=== PATIENT | female | born 1970 | race Caucasian/White ===

== ENCOUNTER → 2016-07-07 | Outpatient (CLI) | payer BC ==
--- NOTE | 2016-07-08 09:03 | WWHP ---
DATE OF SERVICE: 07/07/2016 CHIEF COMPLAINT: The patient is here for her routine gynecologic exam and mammogram. HPI: This is a 46-year-old, G2, P2 with an LMP of 06/12/2016. The patient states her periods have gotten slightly irregular about every 4 to 6 weeks. She is without gynecologic complaints. Her last Pap smear on 01/07/2015 showed ASCUS and there was a negative high-risk HPV testing. Past medical history is unremarkable. MEDICATIONS: None. ALLERGIES: No known drug allergies. Past surgical history is unchanged from the 2015 H&P. 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 SOCIAL HISTORY: She denies tobacco and drug use and has about 2 alcoholic drinks per month. 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 Family history is unchanged from the 2015 H&P. REVIEW OF SYSTEMS: Weight has been stable. She denies respiratory, cardiac, or GI problems. PHYSICAL EXAM: Blood pressure 103/66. Height 5 feet 2 inches. Weight 121 pounds. Temperature 97.7, pulse 73. This is a well-developed, well-nourished white female who is alert and oriented x3, in no acute distress. HEENT is within normal limits. NECK: Supple without mass or thyromegaly. CHEST AND LUNGS: Clear to auscultation. HEART: Regular rate and rhythm. Breasts are without mass or discharge. Axillary exam is negative for adenopathy. BACK: Negative for CVA tenderness. ABDOMEN: Soft, nontender, without palpable masses. PELVIC EXAM: Normal external genitalia. Cervix and vagina appear normal. The uterus is retroverted, nongravid size and nontender. There are no palpable adnexal masses or tenderness. Rectal exam is negative for mass or tenderness and is negative for occult blood. EXTREMITIES: Nontender. IMPRESSION: 1. A 46-year-old female with normal gynecologic exam. 2. History of ASCUS Pap smear with negative high-risk HPV in 2014. PLAN: 1. Pap smear was performed. 2. Self breast examination was discussed. 3. Mammogram will be done today. 4. The patient will keep a menstrual calendar and call if she is having menstrual problems. 5. She will return in one year.
--- NOTE | 2016-07-08 11:44 | MM ---
Reason for exam: screening (asymptomatic). Last mammogram was performed 1 year and 7 months ago. Physical Findings: A clinical breast exam by your physician is recommended on an annual basis and results should be correlated with mammographic findings. MG Screening Mammo w CAD Bilateral CC and MLO view(s) were taken. Prior study comparison: December 06, 2014, bilateral MG screening mammo w CAD. May 20, 2011, bilateral digital screening mammo w/CAD. The breast tissue is heterogeneously dense. This may lower the sensitivity of mammography. No significant changes when compared with prior studies. ASSESSMENT: Benign, BI-RAD 2 RECOMMENDATION: Routine screening mammogram of both breasts in 1 year.
== END | disposition home or self-care (01) ==
LOC: WWCWWP 15:05
PROVIDERS: ATTEND Obstetrics & Gynecology
DX: Z12.31 Encounter for screening mammogram for malignant neoplasm of breast (principal)

== ENCOUNTER → 2018-06-21 | Outpatient (CLI) | payer OTHER ==
[2018-06-21 16:21] VITALS: BP 113/66; PULSE 70; RESP 18; TEMP 97.1; BMI 23.3
--- NOTE | 2018-06-21 16:57 | P.HPOB ---
History of Present Illness H&P Date: 06/21/18 Chief Complaint: The patient is here for her routine gynecologic exam and mammogram. This is a 48-year-old with an LMP of 06/04/2018. The patient states her menses are regular every month and she denies hot flashes. She has used condoms for control. She is without gynecologic complaints. Her last to Pap smear tests showed ascus and both were negative for high-risk HPV. These Pap smears were done on 01/07/2015 and 07/07/2016. Review of Systems The patient has gained 6 pounds over the last year. She denies respiratory, cardiac, or G.I. problems. 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 - Past Family History Father Family Medical History: COPD, Hyperlipidemia Mother Additional Family Medical History / Comment(s): Abnormal heart valve. Grandfather had colon cancer and grandmother has diabetes and a pacemaker. Medications and Allergies Home Medications Medication Instructions Recorded Confirmed Type No Known Home Medications 06/21/18 06/21/18 History Allergies Allergy/AdvReac Type Severity Reaction Status Date / Time No Known Allergies Allergy Verified 06/21/18 16:21 Exam Vital Signs Temp Pulse Resp BP Pulse Ox 06/21/18 16:16 97.1 F L 70 18 113/66 99 Intake and Output 06/21/18 06/21/18 06/21/18 06:59 14:59 22:59 Other: Weight 58.06 kg Height 5'2", weight 127 pounds, BMI 23.4. This is a well-developed well-nourished white female who is alert and oriented times 3 in no acute distress. HEENT: Within normal limits. NECK: Supple without mass or thyromegaly. CHEST AND LUNGS: Clear to auscultation. HEART: Regular rate and rhythm. BREASTS: Are without mass or discharge. AXILLARY EXAM: Negative for adenopathy. BACK: Negative for CVA tenderness. ABDOMEN: Soft, nontender, without palpable masses. PELVIC EXAM: Normal external genitalia. Cervix and vagina appear normal. There is no unusual discharge. There is no evidence of prolapse. The uterus is midposition, nongravid size and nontender. There are no palpable adnexal masses or tenderness. RECTAL EXAM: negative for mass or tenderness and is negative for occult blood. EXTREMITIES: Nontender. IMPRESSION: 1. 48 year old gynecologically healthy female with normal gynecologic exam. 2. Previous ascus Pap smear with negative high-risk HPV approximately 2 years ago. PLAN: 1. Pap smear with high-risk HPV testing (cotest) was performed. 2. Self breast awareness was discussed with the patient. 3. Screening mammogram will be done today. 4. Osteoporosis prevention was discussed. I have stressed the importance of adequate calcium, vitamin D and regular exercise. Recommended amounts of calcium and vitamin D were also discussed. 5. She will return in one year.
--- NOTE | 2018-06-28 15:01 | MM ---
Reason for exam: screening (asymptomatic). Last mammogram was performed 1 year and 11 months ago. MG Screening Mammo w CAD Bilateral CC and MLO view(s) were taken. Prior study comparison: July 07, 2016, bilateral MG screening mammo w CAD. December 06, 2014, bilateral MG screening mammo w CAD. The breast tissue is extremely dense which could obscure a lesion on mammography. There are benign-appearing scattered bilateral calcifications. No suspicious abnormality. No significant changes when compared with prior studies. ASSESSMENT: Benign, BI-RAD 2 RECOMMENDATION: Routine screening mammogram of both breasts in 1 year.
== END | disposition home or self-care (01) ==
LOC: WWCWWP 16:01
PROVIDERS: ATTEND Obstetrics & Gynecology
DX: Z12.31 Encounter for screening mammogram for malignant neoplasm of breast (principal)
CPT/HCPCS: 77067

== ENCOUNTER → 2021-09-02 | Outpatient (CLI) | payer OTHER ==
[2021-09-02 16:21] VITALS: BP 106/67; PULSE 68; RESP 17; TEMP 97.4
--- NOTE | 2021-09-02 17:18 | P.HPOB ---
History of Present Illness H&P Date: 09/02/21 Chief Complaint: The patient is here for her routine gynecologic exam and ma mmogram. This is a 51-year-old with an LMP of February 2021. The patient states her menstrual periods were fairly regular up until last February. She denies any significant hot flashes. She uses condoms for control. She recently took a test which was negative. Review of Systems The patient's weight has been stable over the last year. She denies respiratory or cardiac problems. GI: Occasional constipation. 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 History of Any Multi-Drug Resistant Organisms: None Reported Past Surgical History: Section, Orthopedic Surgery Past Psychological History: No Psychological Hx Reported Smoking Status: Never smoker Past Alcohol Use History: Occasional (About 5 per month) Past Drug Use History: None Reported Additional History: She has been since 1992. 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 - Past Family History Father Family Medical History: COPD, Hyperlipidemia Mother Additional Family Medical History / Comment(s): Abnormal heart valve. Grandfather had colon cancer and grandmother has diabetes and a pacemaker. Medications and Allergies Home Medications Medication Instructions Recorded Confirmed Type No Known Home Medications 06/21/18 09/02/21 History Allergies Allergy/AdvReac Type Severity Reaction Status Date / Time No Known Allergies Allergy Verified 09/02/21 16:09 Exam Vital Signs Temp Pulse Resp BP Pulse Ox 09/02/21 16:10 97.4 F L 68 17 106/67 98 Intake and Output 09/02/21 09/02/21 09/02/21 06:59 14:59 22:59 Other: Weight 56.699 kg Height 5 feet 2 inches, weight 125 pounds, BMI 22.9. This is a well-developed well-nourished white female who is alert and oriented times 3 in no acute distress. HEENT: Within normal limits. NECK: Supple without mass or thyromegaly. CHEST AND LUNGS: Clear to auscultation. HEART: Regular rate and rhythm. BREASTS: Are without mass or discharge. AXILLARY EXAM: Negative for adenopathy. BACK: Negative for CVA tenderness. ABDOMEN: Soft, nontender, without palpable masses. PELVIC EXAM: Normal external genitalia. Cervix and vagina appear normal. There is no unusual discharge. There is no evidence of prolapse. The uterus is retroverted, nongravid size and nontender. There are no palpable adnexal masses or tenderness. RECTAL EXAM: Rectovaginal exam is negative for mass or tenderness and is negative for occult blood. EXTREMITIES: Nontender. IMPRESSION: 1. 51-year-old perimenopausal female with recent amenorrhea without significant vasomotor symptoms 2. Normal gynecologic exam. 3. Previous multiple ASCUS Pap smears with negative high-risk HPV testing. Her most recent one was in 2019. PLAN: 1. Pap smear cotest was performed. 2. Self breast awareness was discussed with the patient. We have also discussed symptoms associated with inflammatory breast cancer. 3. Screening mammogram will be done today. 4. Osteoporosis prevention was discussed. I have stressed the importance of adequate calcium, vitamin D and regular exercise. Recommended amounts of calcium and vitamin D were also discussed. 5. She has completed her Covid vaccination series, but did not receive a booster. She understands the CDC recommends a booster if it is been more than 6 months after her last vaccination. She will consider this. 6. She will keep a menstrual calendar and call if menstrual problems. 7. She was advised to return in one year for her annual well woman exam.
--- NOTE | 2021-09-04 11:50 | MM ---
Reason for exam: screening (asymptomatic). Last mammogram was performed 3 years and 2 months ago. Physical Findings: A clinical breast exam by your physician is recommended on an annual basis and results should be correlated with mammographic findings. MG 3D Screening Mammo W/Cad Bilateral CC and MLO view(s) were taken. Prior study comparison: June 21, 2018, bilateral MG screening mammo w CAD. July 07, 2016, bilateral MG screening mammo w CAD. The breast tissue is extremely dense which could obscure a lesion on mammography. Finding: There are fine, grouped/clustered calcifications in the outer quadrant, middle position of the right breast, 6cm from the nipple. New finding since June 21, 2018 and July 07, 2016. ASSESSMENT: Incomplete: need additional imaging evaluation, BI-RAD 0 RECOMMENDATION: Special view mammogram of the right breast. [facility] will attempt to contact patient to return for supplemental views.
== END | disposition home or self-care (01) ==
LOC: WWCWWP 16:00
PROVIDERS: ATTEND Obstetrics & Gynecology
DX: Z12.31 Encounter for screening mammogram for malignant neoplasm of breast (principal)
CPT/HCPCS: 77063; 77067

== ENCOUNTER → 2021-09-09 | Outpatient (CLI) | payer OTHER ==
--- NOTE | 2021-09-10 15:06 | MM ---
Reason for exam: additional evaluation requested from abnormal screening. Last mammogram was performed less than 1 month ago. Physical Findings: A clinical breast exam by your physician is recommended on an annual basis and results should be correlated with mammographic findings. MG 3D Work Up W/Cad RT CC with magnification, LM with magnification, and LM view(s) were taken of the right breast. Prior study comparison: September 02, 2021, bilateral MG 3d screening mammo w/cad. June 21, 2018, bilateral MG screening mammo w CAD. The breast tissue is heterogeneously dense. This may lower the sensitivity of mammography. Finding: There are 5-7 fine, grouped/clustered calcifications in the upper outer quadrant, middle position of the right breast. New finding since September 02, 2021 and June 21, 2018. ASSESSMENT: Suspicious, BI-RAD 4 RECOMMENDATION: Surgical consultation and ultrasound core biopsy of the right breast. (right breast calcifications) Called Dr. Abel's office with mammographic findings and has scheduled an appointment for the patient for 09/25/21 at 10:[address] Hernandez. Biopsy scheduled for 09/26/21 at 8:00. PRELIMINARY REPORT CALLED AND FAXED TO DR. HERNANDEZ ON 09/10/21.
== END | disposition home or self-care (01) ==
LOC: RADMAMWWP 14:52
PROVIDERS: ATTEND Obstetrics & Gynecology
DX: R92.8 Other abnormal and inconclusive findings on diagnostic imaging of breast (principal)
CPT/HCPCS: 77061; 77065

== ENCOUNTER → 2021-09-25 | Outpatient (CLI) | payer OTHER ==
[2021-09-25 10:16] VITALS: BP 131/81; PULSE 61; RESP 17; TEMP 97.5
--- NOTE | 2021-09-25 11:07 | P.GSHP ---
History of Present Illness H&P Date: 09/25/21 Chief Complaint: abnormal right breast mammogram Cammy is a 51 year old white female seen in consultation for DR. Abel regarding a mammographic abnormality in her right breast. She had a bilateral mammogram on 09-02-21 which led to a right breast diagnostic mammogram on 09-09-21. She was noted to have calcifications in the UOQ for which a core biopsy was recommended. She does not feel any new lumps masses or nodules of concern in either breast. It is not complaining of any nipple discharge, skin changes, or pain in either breast. She has never had any surgery on either breast in the past. She is having intermittent periods, she had a period last week this was the first one in 5 months. Right before her menstrual cycle her breasts are tender. In the remote past the patient had an injury to the right chest wall/was kicked by her horse and suffered fracture of several ribs. Caffeine:1 cup/day nicotine: none hormones: none BCP: about 3 years in her 20's chocolate: weekly Family history: maternal grandfather: colon cancer paternal grandmother: ? breast cancer/ dense breast Hormonal History: menarche: 13 , breast fed: yes, age at first : 23 menopause: eva-menopausal hormones: none Surgical History: knee surgery right arthoscopic cyst removed from behind ear Medical History: none Social History: nicotine: none alcohol: occasional drugs: none - Constitutional Constitutional: Denies chills, Denies fever - EENT Eyes: denies blurred vision, denies pain Ears: deny: decreased hearing, tinnitus Ears, nose, mouth and throat: Denies headache, Denies sore throat - Breasts Breasts: bilateral: as per HPI - Cardiovascular Cardiovascular: Denies chest pain, Denies shortness of breath - Respiratory Respiratory: Denies cough, Denies 7 - Gastrointestinal Gastrointestinal: Denies abdominal pain, Denies diarrhea, Denies nausea, Denies vomiting - Genitourinary (Female) Genitourinary: Denies dysuria, Denies hematuria - Menstruation Menstruation: Reports cycle variable - Musculoskeletal Musculoskeletal: Denies myalgias - Integumentary Integumentary: Denies pruritus, Denies rash - Neurological Neurological: Denies numbness, Denies weakness - Psychiatric Psychiatric: Denies anxiety, Denies depression - Endocrine Endocrine: Denies fatigue, Denies weight change - Hematologic/Lymphatic Comment: none - Allergic/Immunologic Allergic/Immunologic: Reports as per HPI Past Medical History Past Medical History: No Reported History Additional Past Medical History / 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 History of Any Multi-Drug Resistant Organisms: None Reported Past Surgical History: Section, Orthopedic Surgery Past Anesthesia/Blood Transfusion Reactions: No Reported Reaction Past Psychological History: No Psychological Hx Reported Smoking Status: Never smoker Past Alcohol Use History: Occasional Past Drug Use History: None Reported - Past Family History Father Family Medical History: COPD, Hyperlipidemia Mother Additional Family Medical History / Comment(s): Abnormal heart valve. Grandfather had colon cancer and grandmother has diabetes and a pacemaker. Medications and Allergies Home Medications Medication Instructions Recorded Confirmed Type No Known Home Medications 06/21/18 09/25/21 History Allergies Allergy/AdvReac Type Severity Reaction Status Date / Time No Known Allergies Allergy Verified 09/25/21 10:13 Surgical - Exam Vital Signs Temp Pulse Resp BP Pulse Ox 97.5 F L 61 17 131/81 99 09/25/21 10:13 09/25/21 10:13 09/25/21 10:13 09/25/21 10:13 09/25/21 10:13 BMI 21.9 - General well developed, well nourished - Eyes normal ocular movement - Neck trachea midline - Respiratory normal respiratory effort - Cardiovascular Rhythm: regular Heart Sounds: normal: S1, S2 - Abdomen Abdomen: soft, non tender, no guarding, no rigid, no rebound - Integumentary normal turgor - Neurologic no disoriented, no combative - Musculoskeletal normal gait - Psychiatric oriented to time, oriented to person, oriented to place, speech is normal, memory intact Breast Exam: BRA: 34C inspection: Bilateral grade 2 ptosis Palpation: Right breast: Multiple positional exam fibrocystic changes no dominant masses or notches of concern Right axilla: Shoddy adenopathy Left breast: Multiple positional exam fibrocystic changes no dominant masses or nodules of concern Left axilla: Shoddy adenopathy Results Mammogram reviewed in detail with Dr. Gilmore from radiology Assessment and Plan Assessment: Impression: Fibrocystic breast changes Microcalcifications of concern right breast mammogram Plan: Stereotactic core biopsy right breast Risk and benefits of the procedure discussed with the patient. Risks include but are not limited to bleeding, infection, reaction to the anesthetic. If the area of concern is not well seen the procedure may be aborted stereotactically. Alternatives such as watchful waiting or removal in the operating room are discussed but not recommended. The patient understands and wishes to proceed CC: Dr. Abel
== END | disposition home or self-care (01) ==
LOC: WWCWWP 09:59
PROVIDERS: ATTEND Surgery
DX: Z53.9 Procedure and treatment not carried out, unspecified reason (principal); R92.8 Other abnormal and inconclusive findings on diagnostic imaging of breast

== ENCOUNTER → 2021-09-26 | Day surgery (SDC) | payer OTHER ==
[2021-09-26 07:28] VITALS: RESP 16
--- NOTE | 2021-09-26 08:33 | P.PCN ---
Date of Procedure: 09/26/21 Preoperative Diagnosis: Abnormal right breast mammogram/microcalcifications of concern Postoperative Diagnosis: Same Procedure(s) Performed: Stereotactic core biopsy right breast upper outer quadrant Anesthesia: local Surgeon: Sayra Hernandez Pathology: other (Breast tissue with microcalcifications noted in radiograph of the specimen) Condition: stable Disposition: same day Indications for Procedure: Microcalcifications of concern right breast upper outer quadrant Operative Findings: Radiographic specimen reveals microcalcifications of concern Description of Procedure: The patient was brought to the stereotactic core biopsy room. She was p ositioned prone on the lo-rad table. The lesion was in the upper outer quadrant of the right breast. A CC from above approach was utilized. A animal biologist film was obtained. The microcalcifications of concern were identified. The area was targeted. The breast was prepped using Betadine. 20 mL of 1% lidocaine were used to anesthetize the area of concern. A 9-gauge vacuum-assisted core rotating biopsy needle was driven to the correct coordinates. A prefire film was obtained. The needle was noted to be in the correct location. The needle was fired. Post fire film was obtained and the needle was noted to be in the correct location. 13 core biopsy specimens were obtained. Radiograph of the specimen revealed microcalcifications of concern had been sampled. The targeted area was irrigated. A secure hanna Top-Hat clip was placed. The patient tolerated the procedure in stable condition. The specimen was sent for pathology. The patient will follow-up with Dr. Davila next week.
[2021-09-26 08:42] VITALS: BP 111/75; PULSE 67; TEMP 98.1
--- NOTE | 2021-09-26 09:20 | MM ---
The patient was brought to the stereotactic core biopsy room. She was positioned prone on the lo-rad table. The lesion was in the upper outer quadrant of the right breast. A CC from above approach was utilized. A computer technical support specialist film was obtained. The microcalcifications of concern were identified. The area was targeted. The breast was prepped using Betadine. 20 mL of 1% lidocaine were used to anesthetize the area of concern. A 9-gauge vacuum- assisted core rotating biopsy needle was driven to the correct coordinates. A prefire film was obtained. The needle was noted to be in the correct location. The needle was fired. Post fire film was obtained and the needle was noted to be in the correct location. 13 core biopsy specimens were obtained. Radiograph of the specimen revealed microcalcifications of concern had been sampled. The targeted area was irrigated. A secure hanna Top-Hat clip was placed. The patient tolerated the procedure in stable condition. The specimen was sent for pathology. The patient will follow-up with Dr. Davila next week. Postprocedure mammogram revealed that the clip marking the biopsy site was in the correct location. SIMRAN
== END ==
LOC: RADMAMWWP 07:06
PROVIDERS: ATTEND Surgery
DX: R92.8 Other abnormal and inconclusive findings on diagnostic imaging of breast (principal)
CPT/HCPCS: 19081; 88305; A4648; J2001

== ENCOUNTER → 2021-10-02 | Outpatient (CLI) | payer OTHER ==
[2021-10-02 15:12] VITALS: BP 115/71; PULSE 83; RESP 16; TEMP 98.3
--- NOTE | 2021-10-02 15:32 | P.PN ---
Subjective Progress Note Date: 10/02/21 Principal diagnosis: fibrocystic breast changes Cammy is a 51 year old white female status post sterobiopsy of hte right breast on 09-26-21. Pathology was benign. Pathology revealed fibroadenomatoid stromal fibrosis and fibrocystic changes with columnar cell change. She tolerated the procedure without difficulty. She did develop some ecchymosis in the right breast in the upper-outer quadrant after the procedure. Objective - Vital Signs Vital signs: Vital Signs Temp 98.3 F 10/02/21 15:10 Pulse 83 10/02/21 15:10 Resp 16 10/02/21 15:10 BP 115/71 10/02/21 15:10 Pulse Ox 99 10/02/21 15:10 Intake & Output 10/01/21 10/02/21 10/02/21 18:59 06:59 18:59 Weight 54.431 kg - Exam BMI 21.9 - Constitutional General appearance: Present: cooperative - EENT Eyes: Present: EOMI ENT: Present: hearing grossly normal - Neck Neck: Present: normal ROM - Respiratory Respiratory: bilateral: CTA - Cardiovascular Rhythm: regular Heart sounds: normal: S1, S2 - Integumentary Integumentary Comment(s): echymosis right breast upper outer quadrant with a small hematoma as well Integumentary: Present: normal turgor - Musculoskeletal Musculoskeletal: Present: gait normal - Psychiatric Psychiatric: Present: A&O x's 3, appropriate affect, intact judgment & insight - Additional findings Additional findings: Right breast examination: No evidence of infection, echymosis upper outer quadrant with small hematoma Assessment and Plan Assessment: Impression: Fibrocystic breast changes status post her tactic core biopsy right breast Plan: Repeat right breast mammogram in 6 months with physician exam at that time Cc: Dr. Mejia
== END | disposition home or self-care (01) ==
LOC: WWCWWP 15:05
PROVIDERS: ATTEND Surgery
DX: Z53.9 Procedure and treatment not carried out, unspecified reason (principal)

== ENCOUNTER → 2023-11-02 | Outpatient (CLI) | payer OTHER ==
[2023-11-02 15:24] VITALS: BP 102/65; PULSE 71; RESP 16; TEMP 97.9
--- NOTE | 2023-11-02 17:40 | P.HPOB ---
History of Present Illness H&P Date: 11/02/23 Chief Complaint: Patient is here for her routine gynecologic exam. This is a 53-year-old with an LMP of January 2023. The patient's menstrual periods have been spacing out and she may have had 3 menstrual periods during the past year. She had periods in March 2022 and October 2022. She thinks she had a menstrual period in January, but did not write this down. She has been experiencing more hot flashes, night sweats and is also complaining of feeling some abdominal bloating and pressure in the low abdomen. Sexual intercourse has become uncomfortable and notices some discomfort that seems more than simple vaginal dryness. She has used lubricant which did help slightly. Her sister was recently diagnosed with some type of ovarian tumor and is undergoing a workup for this. Review of Systems She has gained about 4 pounds over the past 2 years. She denies respiratory or cardiac problems. GI: Occasional constipation. Past Medical History Past Medical History: No Reported History, Osteoarthritis (OA) Additional Past Medical History / Comment(s): Arthritis in her knees and feet. 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 History of Any Multi-Drug Resistant Organisms: None Reported Past Surgical History: Section, Orthopedic Surgery Past Anesthesia/Blood Transfusion Reactions: No Reported Reaction Past Psychological History: No Psychological Hx Reported Smoking Status: Never smoker Past Alcohol Use History: Occasional (1 drink per month.) Past Drug Use History: None Reported Additional History: She has been since 1992. 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 - Past Family History Father Family Medical History: COPD, Hyperlipidemia Mother Additional Family Medical History / Comment(s): Abnormal heart valve. Grandfather had colon cancer and grandmother has diabetes and a pacemaker. Medications and Allergies Home Medications Medication Instructions Recorded Confirmed Type No Known Home Medications 06/21/18 11/02/23 History Allergies Allergy/AdvReac Type Severity Reaction Status Date / Time No Known Allergies Allergy Verified 11/02/23 14:40 Exam Vital Signs Temp Pulse Resp BP Pulse Ox 11/02/23 14:41 97.9 F 71 16 102/65 99 Intake and Output 11/02/23 11/02/23 11/02/23 06:59 14:59 22:59 Other: Weight 58.513 kg Height 5 feet 2 inches, weight 129 pounds, BMI 23.6. This is a well-developed well-nourished white female who is alert and oriented times 3 in no acute distress. HEENT: Within normal limits. NECK: Supple without mass or thyromegaly. CHEST AND LUNGS: Clear to auscultation. HEART: Regular rate with intermittent ectopic beats. Patient states she has undergone a full workup through a screen examiner for this and does notice occasional palpitations. BREASTS: Are without mass or discharge. AXILLARY EXAM: Negative for adenopathy. BACK: Negative for CVA tenderness. ABDOMEN: Soft, nontender, without palpable masses. PELVIC EXAM: Normal external genitalia. Cervix and vagina appear normal. There is no unusual discharge. There was slight discomfort upon inserting the Cytobrush during her Pap smear acquisition. There is no cervical motion tenderness. There is no evidence of prolapse. The uterus is midposition, nongravid size and nontender. There are no palpable adnexal masses or tenderness. RECTAL EXAM: Rectovaginal exam is negative for mass or tenderness and is negative for occult blood. EXTREMITIES: Nontender. IMPRESSION: 1. 53-year-old perimenopausal female with increasing oligomenorrhea and increasing vasomotor symptoms, with normal gynecologic exam. 2. Recent low abdominal bloating and pressure without significant physical findings on exam today. 3. Recent dyspareunia without significant physical findings on exam today. 4. Several ASCUS Pap smears with negative high-risk HPV testing between 2014 and 2021. The patient states she did have a history of some type of laser procedure of her cervix at around age 18. PLAN: 1. Pap smear cotest was performed. 2. Self breast awareness was discussed with the patient. We have also discussed symptoms associated with inflammatory breast cancer. 3. The patient states she had a screening mammogram in November 2022 at [facility] and per the patient it was normal. The order slip for another screening mammogram was given to the patient and she will do this 1 year after her last one. 4. Pelvic ultrasound was recommended to further evaluate the abdominal bloating and dyspareunia. I recommended that she make sure she uses adequate lubrication during sexual intercourse. 5. Osteoporosis prevention was discussed. I have stressed the importance of adequate calcium, vitamin D and regular exercise. Recommended amounts of calcium and vitamin D were also discussed. 6. Colorectal cancer screening was discussed and she states she is doing Cologuard testing through Dr. Suazo 7. She was advised to return in one year for her annual well woman exam and as needed.
== END ==
LOC: WWCWWP 14:30
PROVIDERS: ATTEND Obstetrics & Gynecology
DX: Z01.419 Encounter for gynecological examination (general) (routine) without abnormal findings (principal); N91.5 Oligomenorrhea, unspecified; R14.0 Abdominal distension (gaseous); N94.10 Unspecified dyspareunia; Z78.0 Asymptomatic menopausal state; Z87.891 Personal history of nicotine dependence